=== PATIENT | male | born 1970 | race Caucasian/White ===

== ENCOUNTER → 2017-08-07 | Outpatient (CLI) | payer BC, OTHER | END | disposition home or self-care (01) | LOC: RAD 10:07 | PROVIDERS: ATTEND Nurse Practitioner Primary Care | DX: R22.1 Localized swelling, mass and lump, neck (principal); R53.83 Other fatigue; K21.9 Gastro-esophageal reflux disease without esophagitis; R22.9 Localized swelling, mass and lump, unspecified; J30.9 Allergic rhinitis, unspecified; R79.9 Abnormal finding of blood chemistry, unspecified | CPT/HCPCS: 76536 ==